=== PATIENT | female | born 1980 | race Caucasian/White ===

== ENCOUNTER → 2017-11-03 | Outpatient (CLI) | payer OTHER | END | disposition home or self-care (01) | LOC: RAD 13:12 → RX STUDY 13:15 | DX: N84.0 Polyp of corpus uteri (principal) ==

== ENCOUNTER 2021-04-18 06:20 | Day surgery (SDC) | payer OTHER | END 2021-04-18 14:15 | disposition home or self-care (01) | LOC: CIR.AMB 06:20 | PROVIDERS: ATTEND Specialist | DX: O02.1 Missed abortion (principal); Z20.822 Contact with and (suspected) exposure to COVID-19 ==